=== PATIENT | male | born 2000 | race Caucasian/White ===

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

== ENCOUNTER 2018-11-04 13:22 | Emergency (ER) | payer BC, OTHER ==
[2018-11-04 14:29] VITALS: BP 115/59
[2018-11-04] MEDS ORDERED: Lidocaine 1% MPF ** 5 ML VIAL INJ ONE (15:28)
--- NOTE | 2018-11-04 15:38 | UC ---
Laceration HPI - HPI Summary HPI Summary: Pt presents with c/o laceration to right distal index finger palmar aspect that occurred today while using a three knife trimmer. - History Of Current Complaint Chief Complaint: UCWounds Stated Complaint: WC - RIGHT INDEX FINGER LACERATION Time Seen by Provider: 11/04/18 15:20 Hx Obtained From: Patient Laceration Location: Finger - right index finger Mechanism Of Injury: Sharp Trauma Onset/Duration: Sudden Onset Severity: Mild Pain Intensity: 4 Aggravating Factors: Position, Movement Related History: Dominant Hand Right - Allergies/Home Medications Allergies/Adverse Reactions: Allergies Allergy/AdvReac Type Severity Reaction Status Date / Time ibuprofen [From Motrin] Allergy Rash Verified 11/04/18 14:30 PMH/Surg Hx/FS Hx/Imm Hx Previously Healthy: Yes - Surgical History Surgical History: Yes Surgery Procedure, Year, and Place: TUBES IN EARS 9 TIMES. T&A. skull fx, subdural hematoma - Family History Known Family History: Negative: Cardiac Disease, Hypertension, Blood Disorder Family History: no family history of cardio-vascular disease - Social History Occupation: Student Lives: With Family Alcohol Use: Rare Substance Use Type: Excessive Caffeine Smoking Status (MU): Never Smoked Tobacco Have You Smoked in the Last Year: No - Immunization History Most Recent Tetanus Shot: unknown Vaccination Up to Date: Yes Review of Systems All Other Systems Reviewed And Are Negative: Yes Constitutional: Positive: Negative Skin: Positive: Other - laceration right index Eyes: Positive: Negative ENT: Positive: Negative Respiratory: Positive: Negative Cardiovascular: Positive: Negative Gastrointestinal: Positive: Negative Genitourinary: Positive: Negative Motor: Positive: Negative Neurovascular: Positive: Negative Musculoskeletal: Positive: Myalgia - at laceration site Neurological: Positive: Negative Psychological: Positive: Negative Is Patient Immunocompromised?: No Physical Exam Triage Information Reviewed: Yes Appearance: Well-Appearing Vital Signs: Initial Vital Signs Temp 98 F 11/04/18 14:26 Pulse 59 11/04/18 14:26 Resp 18 11/04/18 14:26 BP 115/59 11/04/18 14:26 Pulse Ox 100 11/04/18 14:26 Vital Signs Reviewed: Yes Eye Exam: Normal ENT Exam: Normal Dental Exam: Normal Neck exam: Normal Respiratory: Positive: No respiratory distress Musculoskeletal Exam: Normal Musculoskeletal: Positive: Strength Intact, ROM Intact Neurological Exam: Normal Psychological Exam: Normal Skin Exam: Other - laceration right index finger Laceration Repair - Laceration Repair 1 Description: Linear Laceration Size After Repair: Length (cm) - 2.5, Width (mm) - 2, Depth (mm) - 2 Modified For Repair: No Anesthesia Used: 1.0% Lido - 3 ml Cleansing Completed Via Routine Prep: Yes Irrigation With Pressure Irrigation Device: Yes Closure Material: Sutures - 6 sutures of 5-0 prolene placed Closure Method: Single Layer Suture Of: Skin Suture Type: Prolene Laceration Course/Dx - Differential Dx - Laceration/Wound Differental Diagnoses: Laceration - Diagnosis Provider Diagnosis: Laceration of right index finger Discharge - Sign-Out/Discharge Documenting (check all that apply): Patient Departure All imaging exams completed and their final reports reviewed: No Studies - Discharge Plan Condition: Stable Disposition: HOME Prescriptions: Cephalexin CAP* [Keflex 500 CAP*] 500 mg PO Q8H #21 cap Patient Education Materials: Care For Your Stitches (DC), Laceration (ED) Referrals: Kahlil Ponce MD [Primary Care Provider] - If Needed Additional Instructions: Please return to have your sutures removed in 10-14 days. Please monitor for any signs or symptoms of infection such as but not limited to: increased redness , fever, chills, purulent discharge, fever or chills. - Billing Disposition and Condition Condition: STABLE Disposition: Home
== END 2018-11-04 16:18 | disposition home or self-care (01) ==
LOC: UCCORT 13:22
DX: S61.210A Laceration without foreign body of right index finger without damage to nail, initial encounter (principal); W29.3XXA Contact with powered garden and outdoor hand tools and machinery, initial encounter; Y93.H2 Activity, gardening and landscaping; Y92.9 Unspecified place or not applicable
CPT/HCPCS: 12002; 99212; G0463

== ENCOUNTER 2018-11-14 20:07 | Emergency (ER) | payer OTHER ==
[2018-11-14 20:17] VITALS: BP 128/61
--- NOTE | 2018-11-14 20:25 | ED ---
Laceration/Wound HPI - HPI Summary HPI Summary: 18 yr old male with suture removal from the right index finger. He states no problems with the wound. No redness, no drainage. Sutures in 10 days. - History of Current Complaint Stated Complaint: STITCHES REMOVAL - DONE HERE Time Seen by Provider: 11/14/18 20:13 Pain Intensity: 0 - Allergy/Home Medications Allergies/Adverse Reactions: Allergies Allergy/AdvReac Type Severity Reaction Status Date / Time ibuprofen [From Motrin] Allergy Rash Verified 11/14/18 20:14 PMH/Surg Hx/FS Hx/Imm Hx Endocrine/Hematology History: Denies: Hx Diabetes, Hx Thyroid Disease Cardiovascular History: Denies: Hx Hypertension Respiratory History: Reports: Hx Asthma Denies: Hx Chronic Obstructive Pulmonary Disease (COPD) GI History: Denies: Hx Ulcer - Surgical History Surgery Procedure, Year, and Place: TUBES IN EARS 9 TIMES. T&A. skull fx, subdural hematoma Infectious Disease History: No Infectious Disease History: Denies: Hx Hepatitis, Hx Human Immunodeficiency Virus (HIV), Traveled Outside the in Last 30 Days - Family History Known Family History: Negative: Cardiac Disease, Hypertension, Blood Disorder Family History: no family history of cardio-vascular disease - Social History Alcohol Use: Rare Substance Use Type: Reports: None Smoking Status (MU): Never Smoked Tobacco Have You Smoked in the Last Year: No Review of Systems Positive: Other - sutures in right index finger All Other Systems Reviewed And Are Negative: Yes Physical Exam Triage Information Reviewed: Yes Vital Signs On Initial Exam: Initial Vitals Temp Pulse Resp BP Pulse Ox 99.2 F 61 18 128/61 100 11/14/18 20:15 11/14/18 20:15 11/14/18 20:15 11/14/18 20:15 11/14/18 20:15 Vital Signs Reviewed: Yes Appearance: Positive: Well-Appearing, No Pain Distress Skin: Positive: Other - 6 sutures in the right index finger Head/Face: Positive: Normal Head/Face Inspection Eyes: Positive: EOMI ENT: Positive: Normal ENT inspection Respiratory/Lung Sounds: Positive: Other - normal effort Cardiovascular: Positive: Pulses are Symmetrical in both Upper and Lower Extremities Abdomen Description: Negative: Distended Musculoskeletal: Positive: Strength/ROM Intact Neurological: Positive: Sensory/Motor Intact, Alert, Oriented to Person Place, Time, CN Intact II-III Psychiatric: Positive: Normal - [place] Coma Scale Best Eye Response: 4 - Spontaneous Best Motor Response: 6 - Obeys Commands Best Verbal Response: 5 - Oriented Coma Scale Total: 15 Procedures - Procedure Summary Procedure Summary: 6 sutures removed by me from the right index finger volar distal fat pad area. No redness, no drainage. Diagnostics - Vital Signs Vital Signs Temp Pulse Resp BP Pulse Ox 11/14/18 20:15 99.2 F 61 18 128/61 100 - Laboratory Lab Statement: Any lab studies that have been ordered have been reviewed, and results considered in the medical decision making process. Laceration Repair Course/Dx - Course Course Of Treatment: right index finger sutures removed, wound in good approximation. - Clinical Impression Provider Diagnoses: Encounter for removal of sutures Discharge - Sign-Out/Discharge Documenting (check all that apply): Patient Departure All imaging exams completed and their final reports reviewed: No Studies - Discharge Plan Condition: Good Disposition: HOME Patient Education Materials: Stitches Removal (ED) Referrals: Kahlil Ponce MD [Primary Care Provider] - 2 Days - Billing Disposition and Condition Condition: GOOD Disposition: Home
== END 2018-11-14 20:27 | disposition home or self-care (01) ==
LOC: UCCORT 20:07
DX: Z48.02 Encounter for removal of sutures (principal)